=== PATIENT | female | born 1990 | race African-American/Black ===

== ENCOUNTER 2019-06-05 10:07 | Inpatient (IN) | payer BC, SELFPAY ==
[2019-06-05] VITALS (50 sets, daily range): BP systolic 114–188; BP diastolic 63–119; PULSE 64–87; TEMP 36.1–36.6; BMI 37.8
[2019-06-05 10:42] LABS: Basophils Percent Auto 0.8 % (0.2-1.2); Eosinophils Absolute Auto 0.1 K/mm3 (0-0.3); Eosinophils Percent Auto 1.2 % (0-4.4); Hematocrit 34.2 % (37.0-47.0); Immature Granulocyte Absolute 0.04 K/mm3 (0.00-0.031); Immature Granulocyte Percent A 0.8 % (0-0.5); Lymphocytes Absolute Auto 1.36 K/mm3 (0.9-3.2); Lymphocytes Percent Auto 27.1 % (18.3-44.2); Mean Corpuscular HGB Conc 32.2 g/dl (32-36); Mean Platelet Volume 10.4 fl (7.4-10.4); Monocytes Absolute Auto 0.4 K/mm3 (0.1-0.6); Monocytes Percent Auto 8.6 % (2.6-8.5); Neutrophils Absolute Auto 3.1 K/mm3 (1.3-6.7); Neutrophils Percent Auto 61.5 % (45.5-73.1); Platelet Count Result 261 k/mm3 (150-375); Red Blood Count 4.07 M/mm3 (4.2-5.4); Red Cell Distribution Width 14.3 % (11.5-14.5)
[2019-06-05 10:49] LABS: Add Urine Microscopic? YES; Appearance Urine Clear (Clear); Bacteria Urine Trace /hpf; Bilirubin Urine Negative (Negative); Blood Urine Negative (Negative); Color Urine Yellow (Yellow); Glucose Urine UA Negative (Negative); Ketones Urine Negative (Negative); Leukocyte Esterase Ur Negative LEU/UL (NEGATIVE); Nitrate Urine Negative (Negative); Protein Urine 3+ mg/dL (Negative); RBC Urine 0-2 /hpf (0-2); Specific Grav Ur 1.018 (1.001-1.035); Squamous Epithelial Cell Urine Many /hpf (Few); Urobilinogen Urine Negative mg/dL (<2.0); WBC Urine 0-3 /hpf (0-3)
[2019-06-05 10:53] LABS: Creatinine Urine 129.8 mg/dL
[2019-06-05 11:01] LABS: Alanine Aminotransferase 16 U/L (4-35); Albumin Level 3.6 g/dL (3.5-5.1); Alkaline Phosphatase 152 U/L (38-126); Aspartate Amino Transferase 29 U/L (14-36); Bilirubin,Total 0.1 mg/dL (0.2-1.3); Blood Urea Nitrogen 11 mg/dL (7-17); Calcium 9.2 mg/dL (8.4-10.2); Carbon Dioxide 21 mmol/L (22-30); Chloride 107 mmol/L (98-107); Estimated Glomerular Filt Rate > 60; Glucose 79 mg/dL (65-105); Potassium 4.2 mmol/L (3.4-5.0); Sodium 134 mmol/L (137-145)
[2019-06-05 11:10] LABS: Total Protein Urine Random > 600 mg/dL
[2019-06-05 11:16] LABS: Uric Acid 6.9 mg/dL (2.5-7.5)
[2019-06-05] MEDS: LABETALOL HCL INJ 100 MG/20 ML VIAL 20 MG IV PUSH (12:16)
[2019-06-05] MEDS: LACTATED RINGERS 1,000 ML 125 ML IV CONT (12:34)
[2019-06-05] MEDS: MAGNESIUM SULF 4 GM/WATER100ML 4 GM/100 ML BAG IVPB (12:35)
--- NOTE | 2019-06-05 12:52 | LDADM ---
This patient, Zack Rivera, was admitted to Labor/Delivery/Recovery 107 on 06/05/19 at 10:07. Plans for labor, pain management and were discussed with patient. Patient/family oriented to hospital policies and general routines including ID bracelet, bed and alarms, visiting hours, pain management, procedures, bathroom and other care routines, personal items, smoking policy, room service/diet and guest tray routines, infant security routines, and visiting hours. Patient/Family are encouraged to report perceived risks to care and to ask questions if they do not understand what they are told or what they should do. See OBIX for further documentation.
[2019-06-05] MEDS: MAGNESIUM SULF 2 GM/WATER 50ML 2 GM/50 ML BAG IVPB (13:05)
--- NOTE | 2019-06-05 13:14 | PC.NURSE ---
1120- called, read bp's and labs. Orders received to monitor bp's and call back with results.
--- NOTE | 2019-06-05 13:16 | PC.NURSE ---
1152-Dr. Botello called with increased bp's. Orders received to admit pt as inpatient for induction of labor with cervidil. Start hypertension protocol and start magensium sulfate 4gm bolus then run at 2gm/hr.
[2019-06-05] MEDS: LABETALOL HCL INJ 100 MG/20 ML VIAL 40 MG IV PUSH (13:44)
--- NOTE | 2019-06-05 13:48 | PC.NURSE ---
1153- called, read most recent bp's since Magnesium sulfate was started. Order received to keep pt NPO and give Labatelol 40mg IV push now.
[2019-06-05] MEDS: AMPICILLIN 2 GM/NS 100 ML 2 GM/100 ML BAG IVPB (14:18)
--- NOTE | 2019-06-05 16:13 | PC.NURSE ---
1613- called,informed pt has a headache and read most recent bp's. Order received for tylenol and he will be in soon to discuss induction with patient
[2019-06-05] MEDS: ACETAMINOPHEN 325 MG TABLET 650 MG PO (16:15)
--- NOTE | 2019-06-05 17:13 | PM.IMHP ---
H&P: HPI History of Present Illness Chief complaint: MIL Narrative: Zack Rivera is a 29 year old 1 female at 36 weeks gestation who presents for elevated blood pressures in the severe range. She denies any symptoms of severe preeclampsia. She denies any headache, blurry vision, epigastric pain. She denies any sudden onset worsening of her edema. She denies any chest pain or shortness of breath. She denies any nausea, vomiting, fever, chills. Review of Systems Constitutional: Constitutional: Reports no additional constitutional complaints, Denies fatigue, Denies headache(s), Denies lethargy and Denies weakness Eyes: Eyes: Reports no additional eye complaints, Denies blurry vision and Denies photophobia ENT: Reports as per HPI, Denies headache(s) and Denies neck pain Cardiovascular: Cardiovascular: Denies chest pain, Denies diaphoresis, Denies leg edema, Denies palpitations and Denies dyspnea Respiratory: Respiratory: Denies hemoptysis, Denies dyspnea and Denies wheezing Gastrointestinal: Gastrointestinal: Denies abdominal pain, Denies melena, Denies bloating, Denies hematochezia, Denies nausea and Denies vomiting Genitourinary: Genitourinary: Reports no additional female genitourinary complaints Musculoskeletal: Musculoskeletal: Denies joint swelling, Denies neck pain, Denies numbness and Denies stiffness Neurologic: Denies Abnormal speech present, Denies confusion, Denies headache(s), Denies numbness and Denies weakness Psychiatric: Psychiatric: Denies anxiety, Denies confusion, Denies depression, Denies homicidal ideation and Denies suicidal ideation Endocrine: Endocrine: Denies fatigue and Denies palpitations Allergic/Immunologic: Allergic/Immunologic: Denies wheezing [facility] Social History Social History Smoking status: Never smoker Second hand tobacco smoke exposure: No Alcohol intake: never Substance use: never Gender identity (if verbalized by the patient): Female Spiritual care concerns: No Meds Home Medications and Allergies Home Medications Medication Instructions Recorded Confirmed Type PNV cmb#95-ferrous fumarate-FA 1 tablet PO DAILY 06/05/19 06/05/19 History [] Allergies Allergy/AdvReac Type Severity Reaction Status Date / Time No Known Allergies Allergy Verified 06/05/19 11:00 Vital Signs Vital Signs - 24 hr 06/05/19 10:32 06/05/19 10:45 06/05/19 11:00 Temperature Pulse Rate 69 76 68 Blood Pressure 177/99 H 154/99 H 156/100 H Blood Pressure [Right Arm] 06/05/19 11:15 06/05/19 11:25 06/05/19 11:30 Temperature Pulse Rate 69 68 80 Blood Pressure 157/102 H 188/109 H Blood Pressure [Right Arm] 157/102 H 06/05/19 11:46 06/05/19 12:10 06/05/19 12:16 Temperature Pulse Rate 69 81 64 Blood Pressure 183/108 H 171/102 H 180/107 H Blood Pressure [Right Arm] 06/05/19 12:20 06/05/19 12:31 06/05/19 12:35 Temperature 97.7 F 97.8 F Pulse Rate 71 Blood Pressure 164/97 H Blood Pressure [Right Arm] 06/05/19 12:46 06/05/19 13:01 06/05/19 13:08 Temperature Pulse Rate 71 77 Blood Pressure 156/97 H 168/101 H Blood Pressure [Right Arm] 177/99 H 06/05/19 13:16 06/05/19 13:31 06/05/19 13:44 Temperature Pulse Rate 75 76 76 Blood Pressure 159/103 H 164/101 H Blood Pressure [Right Arm] 06/05/19 13:46 06/05/19 13:47 06/05/19 14:01 Temperature Pulse Rate 85 78 81 Blood Pressure 143/119 H 156/97 H 158/94 H Blood Pressure [Right Arm] 06/05/19 14:16 06/05/19 14:31 06/05/19 14:37 Temperature 97.3 F L Pulse Rate 73 74 Blood Pressure 153/92 H 159/99 H Blood Pressure [Right Arm] 06/05/19 14:46 06/05/19 15:01 06/05/19 15:16 Temperature Pulse Rate 73 70 75 Blood Pressure 142/80 H 139/75 138/80 Blood Pressure [Right Arm] 06/05/19 15:31 06/05/19 15:46 06/05/19 16:01 Temperature Pulse Rate 70 73 80 Blood Pressure 138/75 135/75 142/83 H Blood Pressure [Right
[2019-06-05] MEDS: LABETALOL HCL 100 MG TABLET 400 MG PO (17:24)
[2019-06-05] MEDS: AMPICILLIN 1 GM/NS 50 ML 1 GM/50 ML BAG IVPB ×2 (18:34→23:12)
[2019-06-05 19:00] LABS: Hematocrit 32.1 % (37.0-47.0); Hemoglobin 10.3 g/dL (12.0-15.0); Mean Corpuscular HGB Conc 32.1 g/dl (32-36); Mean Platelet Volume 10.6 fl (7.4-10.4); Platelet Count Result 245 k/mm3 (150-375); Red Blood Count 3.82 M/mm3 (4.2-5.4); Red Cell Distribution Width 14.5 % (11.5-14.5)
[2019-06-05] MEDS: DINOPROSTONE 10 MG VAG INSERT VAGINAL (19:01)
[2019-06-05 19:11] LABS: Uric Acid 7.2 mg/dL (2.5-7.5)
[2019-06-05 20:35] LABS: Alanine Aminotransferase 16 U/L (4-35); Albumin Level 3.3 g/dL (3.5-5.1); Alkaline Phosphatase 164 U/L (38-126); Aspartate Amino Transferase 29 U/L (14-36); Bilirubin,Total 0.1 mg/dL (0.2-1.3); Blood Urea Nitrogen 9 mg/dL (7-17); Calcium 8.2 mg/dL (8.4-10.2); Carbon Dioxide 19 mmol/L (22-30); Chloride 104 mmol/L (98-107); Estimated CRCL calculation 101 ml/min; Estimated Glomerular Filt Rate > 60; Glucose 99 mg/dL (65-105); Potassium 3.6 mmol/L (3.4-5.0); Sodium 131 mmol/L (137-145)
[2019-06-05] MEDS: MAGNESIUM SULF 20GM/WATER500ML 500 ML 50 MG IV CONT (23:31)
[2019-06-06] VITALS (124 sets, daily range): BP systolic 112–183; BP diastolic 57–157; PULSE 73–105; RESP 18; TEMP 36.2–37; O2SAT 93–100
[2019-06-06] MEDS: AMPICILLIN 1 GM/NS 50 ML 1 GM/50 ML BAG IVPB ×3 (02:41→10:33)
[2019-06-06] MEDS: LACTATED RINGERS 1,000 ML 125 ML IV CONT ×3 (02:42→23:18)
[2019-06-06 03:00] LABS: Basophils Percent Auto 0.4 % (0.2-1.2); Eosinophils Percent Auto 0.3 % (0-4.4); Hematocrit 34.3 % (37.0-47.0); Immature Granulocyte Absolute 0.05 K/mm3 (0.00-0.031); Immature Granulocyte Percent A 0.6 % (0-0.5); Lymphocytes Absolute Auto 1.44 K/mm3 (0.9-3.2); Lymphocytes Percent Auto 18.1 % (18.3-44.2); Mean Corpuscular HGB Conc 32.1 g/dl (32-36); Mean Corpuscular Hemoglobin 26.8 pg (26-34); Mean Corpuscular Volume 83.7 fl (80-100); Mean Platelet Volume 10.7 fl (7.4-10.4); Monocytes Absolute Auto 0.6 K/mm3 (0.1-0.6); Monocytes Percent Auto 7.3 % (2.6-8.5); Neutrophils Absolute Auto 5.8 K/mm3 (1.3-6.7); Neutrophils Percent Auto 73.3 % (45.5-73.1); Platelet Count Result 272 k/mm3 (150-375); Red Cell Distribution Width 14.6 % (11.5-14.5)
[2019-06-06 03:12] LABS: Alanine Aminotransferase 16 U/L (4-35); Albumin Level 3.7 g/dL (3.5-5.1); Alkaline Phosphatase 187 U/L (38-126); Aspartate Amino Transferase 29 U/L (14-36); Bilirubin,Total 0.1 mg/dL (0.2-1.3); Blood Urea Nitrogen 10 mg/dL (7-17); Calcium 8.1 mg/dL (8.4-10.2); Carbon Dioxide 22 mmol/L (22-30); Chloride 102 mmol/L (98-107); Estimated CRCL calculation 90 ml/min; Estimated Glomerular Filt Rate > 60; Glucose 89 mg/dL (65-105); Potassium 4.1 mmol/L (3.4-5.0); Sodium 132 mmol/L (137-145); Uric Acid 7.5 mg/dL (2.5-7.5)
[2019-06-06] MEDS: LABETALOL HCL 100 MG TABLET 400 MG PO (05:08)
--- NOTE | 2019-06-06 07:44 | PM.OBPNVD ---
OB - PN: Subj Subjective Date/time seen: 06/06/19 07:44 no complaints, no seals/bv/ep, no change in edema OB - PN: Obj Data Labs CBC & Chem 7: 06/06/19 02:51 06/06/19 02:51 Labs: Laboratory Results - last 24 hr 06/05/19 06/05/19 06/05/19 10:26 10:26 10:26 WBC 5.0 RBC 4.07 L Hgb 11.0 L Hct 34.2 L MCV 84.0 MCH 27.0 MCHC 32.2 RDW 14.3 Plt Count 261 MPV 10.4 Immature Gran % (Auto) 0.8 H Neut % (Auto) 61.5 Lymph % (Auto) 27.1 [place] % (Auto) 8.6 H Eos % (Auto) 1.2 Baso % (Auto) 0.8 Lymph # (Auto) 1.36 [place] # (Auto) 0.4 Eos # (Auto) 0.1 Baso # (Auto) 0.0 Abs Immat Gran (auto) 0.04 H Absolute Neuts (auto) 3.1 Absolute Nucleated RBC 0.0 Nucleated RBC % 0.0 Sodium Potassium Chloride Carbon Dioxide BUN Creatinine Estim Creat Clear Calc Estimated GFR Glucose Uric Acid Calcium Total Bilirubin AST ALT Alkaline Phosphatase Total Protein Albumin Urine Color Yellow Urine Appearance Clear Urine pH 7.0 Ur Specific [place] 1.018 Urine Protein 3+ H Urine Glucose (UA) Negative Urine Ketones Negative Ur Blood (Man) Negative Urine Nitrate Negative Urine Bilirubin Negative Urine Urobilinogen Negative Ur Leukocyte Esterase Negative Urine RBC 0-2 Urine WBC 0-3 Ur Squamous Epith Cells Many H Urine Bacteria Trace Hyaline Casts 1-2 U Random Total Protein > 600 Urine Creatinine 129.8 Blood Type Antibody Screen 06/05/19 06/05/19 06/05/19 10:26 12:38 18:37 WBC 7.0 RBC 3.82 L Hgb 10.3 L Hct 32.1 L MCV 84.0 MCH 27.0 MCHC 32.1 RDW 14.5 Plt Count 245 MPV 10.6 H Immature Gran % (Auto) Neut % (Auto) Lymph % (Auto) [place] % (Auto) Eos % (Auto) Baso % (Auto) Lymph # (Auto) [place] # (Auto) Eos # (Auto) Baso # (Auto) Abs Immat Gran (auto) Absolute Neuts (auto) Absolute Nucleated RBC Nucleated RBC % Sodium 134 L Potassium 4.2 Chloride 107 Carbon Dioxide 21 L BUN 11 Creatinine 0.90 Estim Creat Clear Calc Not Reportable Estimated GFR > 60 Glucose 79 Uric Acid 6.9 Calcium 9.2 Total Bilirubin 0.1 L AST 29 ALT 16 Alkaline Phosphatase 152 H Total Protein 7.0 Albumin 3.6 Urine Color Urine Appearance Urine pH Ur Specific [place] Urine Protein Urine Glucose (UA) Urine Ketones Ur Blood (Man) Urine Nitrate Urine Bilirubin Urine Urobilinogen Ur Leukocyte Esterase Urine RBC Urine WBC Ur Squamous Epith Cells Urine Bacteria Hyaline Casts U Random Total Protein Urine Creatinine Blood Type B Positive Antibody Screen Negative 06/05/19 06/05/19 06/06/19 18:37 18:37 02:51 WBC 8.0 RBC 4.10 L Hgb 11.0 L Hct 34.3 L MCV 83.7 MCH 26.8 MCHC 32.1 RDW 14.6 H Plt Count 272 MPV 10.7 H Immature Gran % (Auto) 0.6 H Neut % (Auto) 73.3 H Lymph % (Auto) 18.1 L [place] % (Auto) 7.3 Eos % (Auto) 0.3 Baso % (Auto) 0.4 Lymph # (Auto) 1.44 [place] # (Auto) 0.6 Eos # (Auto) 0.0 Baso # (Auto) 0.0 Abs Immat Gran (auto) 0.05 H Absolute Neuts (auto) 5.8 Absolute Nucleated RBC 0.0 Nucleated RBC % 0.0 Sodium 131 L Potassium 3.6 Chloride 104 Carbon Dioxide 19 L BUN 9 Creatinine 0.80 Estim Creat Clear Calc 101 Estimated GFR > 60 Glucose 99 Uric Acid 7.2 Calcium 8.2 L Total Bilirubin 0.1 L AST 29 ALT 16 Alkaline Phosphatase 164 H Total Protein 7.0 Albumin 3.3 L Urine Color Urine Appearance Urine pH Ur Specific [place] Urine Protein Urine Glucose (UA) Urine Ketones Ur Blood (Man) Urine Nitrate Urine Bilirubin Urine Urobilinogen Ur Leukocyte Esterase Urine RBC Urine WB
[2019-06-06] MEDS: ONDANSETRON INJ 4 MG/2 ML VIAL IV PUSH (08:08)
[2019-06-06] MEDS: MAGNESIUM SULF 20GM/WATER500ML 500 ML 50 MG IV CONT ×2 (08:53→18:50)
[2019-06-06] MEDS: OXYTOCIN 30 UNITS/NS 500 ML 30 UNITS/500 ML BAG IV CONT (08:54)
--- NOTE | 2019-06-06 09:13 | WPDANESEPP ---
Anes - Eval Pre Procedure Procedure: Labor Pain Date/Time: 06/06/19 09:13 Surgeon: Ayan Preop Diagnosis: Labor Pain Pre Op Diagnosis: MIL Patient Data Age: 29 Gender: F Height: 5 ft 3 in Weight: 96.82 kg Last Vital Signs Temp 36.3 C L 06/06/19 08:47 Pulse 79 06/06/19 09:13 BP 119/70 06/06/19 09:13 Pulse Ox 98 06/06/19 09:09 Allergies Allergy/AdvReac Type Severity Reaction Status Date / Time No Known Allergies Allergy Verified 06/05/19 11:00 Home Medications Medication Instructions Recorded Confirmed Type PNV cmb#95-ferrous fumarate-FA 1 tablet PO DAILY 06/05/19 06/05/19 History [] Laboratory Tests 06/05/19 06/05/19 06/05/19 10:26 10:26 10:26 WBC 5.0 K/mm3 K/mm3 (4.5-10.0) RBC 4.07 M/mm3 L M/mm3 (4.2-5.4) Hgb 11.0 g/dL L g/dL (12.0-15.0) Hct 34.2 % L % (37.0-47.0) MCV 84.0 fl fl (80-100) MCH 27.0 pg pg (26-34) MCHC 32.2 g/dl g/dl (32-36) RDW 14.3 % % (11.5-14.5) Plt Count 261 k/mm3 k/mm3 (150-375) MPV 10.4 fl fl (7.4-10.4) Immature Gran % (Auto) 0.8 % H % (0-0.5) Neut % (Auto) 61.5 % % (45.5-73.1) Lymph % (Auto) 27.1 % % (18.3-44.2) [place] % (Auto) 8.6 % H % (2.6-8.5) Eos % (Auto) 1.2 % % (0-4.4) Baso % (Auto) 0.8 % % (0.2-1.2) Lymph # (Auto) 1.36 K/mm3 K/mm3 (0.9-3.2) [place] # (Auto) 0.4 K/mm3 K/mm3 (0.1-0.6) Eos # (Auto) 0.1 K/mm3 K/mm3 (0-0.3) Baso # (Auto) 0.0 K/mm3 K/mm3 (0.0-0.1) Abs Immat Gran (auto) 0.04 K/mm3 H K/mm3 (0.00-0.031) Absolute Neuts (auto) 3.1 K/mm3 K/mm3 (1.3-6.7) Absolute Nucleated RBC 0.0 K/mm3 K/mm3 (0.0-0.012) Nucleated RBC % 0.0 % % (0.0-0.2) Sodium Potassium Chloride Carbon Dioxide BUN Creatinine Estim Creat Clear Calc Estimated GFR Glucose Uric Acid Calcium Total Bilirubin AST ALT Alkaline Phosphatase Total Protein Albumin Urine Color Yellow (Yellow) Urine Appearance Clear (Clear) Urine pH 7.0 (5.0-9.0) Ur Specific [place] 1.018 (1.001-1.035) Urine Protein 3+ mg/dL H mg/dL (Negative) Urine Glucose (UA) Negative mg/dL mg/dL (Negative) Urine Ketones Negative mg/dL mg/dL (Negative) Ur Blood (Man) Negative (Negative) Urine Nitrate Negative (Negative) Urine Bilirubin Negative (Negative) Urine Urobilinogen Negative mg/dL mg/dL (<2.0) Ur Leukocyte Esterase Negative SAM/UL SAM/UL (NEGATIVE) Urine RBC 0-2 /hpf /hpf (0-2) Urine WBC 0-3 /hpf /hpf (0-3) Ur Squamous Epith Cells Many /hpf H /hpf (Few) Urine Bacteria Trace /hpf /hpf Hyaline Casts 1-2 /lpf /lpf (None) U Random Total Protein > 600 mg/dL mg/dL Urine Creatinine 129.8 mg/dL mg/dL RPR Blood Type Antibody Screen 06/05/19 06/05/19 06/05/19 10:26 12:38 12:38 WBC RBC Hgb Hct MCV MCH MCHC RDW Plt Count MPV Immature Gran % (Auto) Neut % (Auto) Lymph % (Auto) [place] % (Auto) Eos % (Auto) Baso % (Auto) Lymph # (Auto) [place] # (Auto) Eos # (Auto) Baso # (Auto) Abs Immat Gran (auto) Absolute Neuts (auto) Absolute Nucleated RBC Nucleated RBC % Sodium 134 mmol/L L mm
[2019-06-06 10:06] LABS: Rapid Plasma Reagin Non-Reactive (NonReactive)
[2019-06-06 13:20] LABS: Hematocrit 33.5 % (37.0-47.0); Hemoglobin 10.8 g/dL (12.0-15.0); Mean Corpuscular HGB Conc 32.2 g/dl (32-36); Mean Corpuscular Hemoglobin 27.1 pg (26-34); Mean Platelet Volume 10.7 fl (7.4-10.4); Platelet Count Result 264 k/mm3 (150-375); Red Blood Count 3.99 M/mm3 (4.2-5.4); Red Cell Distribution Width 14.7 % (11.5-14.5); White Blood Count 9.2 K/mm3 (4.5-10.0)
[2019-06-06 13:33] LABS: Alanine Aminotransferase 19 U/L (4-35); Albumin Level 3.7 g/dL (3.5-5.1); Alkaline Phosphatase 188 U/L (38-126); Aspartate Amino Transferase 29 U/L (14-36); Bilirubin,Total 0.1 mg/dL (0.2-1.3); Blood Urea Nitrogen 11 mg/dL (7-17); Calcium 7.7 mg/dL (8.4-10.2); Carbon Dioxide 21 mmol/L (22-30); Chloride 102 mmol/L (98-107); Estimated CRCL calculation 90 ml/min; Estimated Glomerular Filt Rate > 60; Glucose 103 mg/dL (65-105); Potassium 4.2 mmol/L (3.4-5.0); Sodium 130 mmol/L (137-145); Uric Acid 7.7 mg/dL (2.5-7.5)
--- NOTE | 2019-06-06 14:23 | PM.OBPRVD ---
OB - Delivery Note Procedure Delivery date: 06/06/19 Procedure: events: Pre-Eclampsia Intrapartal events: Severe Preeclampsia Induction method: AROM, per misoprostol protocol and per pitocin protocol Delivery monitor: external FHT and internal uterine Route of delivery: Laceration description: Perineal - 1st Degree Delivery repair: vicryl Specimen: Yes Estimated blood loss (mL): 675 Anesthesia type: Epidural Disposition: floor Complications: bleeding /hemorrhage, 675 blood loss [place] Baby Date of : 06/06/19 Time of : 13:38 Weeks of gestation at delivery: 36 Infant gender: Male Weight (pounds): 5 Weight (ounces): 4 presentation: vertex position: Left Occiput Transverse Placenta delivery description: Spontaneous cord vessel description: 3 Vessels score one minute: 9 score ten minutes: 9
[2019-06-06] MEDS: OXYTOCIN 30 UNITS/NS 500 ML 30 UNITS/500 ML BAG 125 UNITS IV CONT (14:26)
--- NOTE | 2019-06-06 14:56 | PC.NURSE ---
1445- called to clarify labetalol and magensium sulfate orders. Order received to continue magnesium sulfate at 2g/hr for 24hr after delivery and decrease labetalol to 200mg po q12hr.
[2019-06-06] MEDS: BENZOCAINE 20% AER SPR (*SP) 56 GM CAN 1 SPRAY TOPICAL (15:52)
[2019-06-06] MEDS: WITCH HAZEL 40 PADS 1 PAD TOPICAL (15:52)
[2019-06-06] MEDS: ACETAMINOPHEN 325 MG TABLET 650 MG PO (17:46)
[2019-06-06] MEDS: LABETALOL HCL 100 MG TABLET 200 MG PO (17:46)
[2019-06-07] VITALS (7 sets, daily range): BP systolic 125–156; BP diastolic 81–98; PULSE 69–86; RESP 16–18; TEMP 36.4–36.9; O2SAT 100
[2019-06-07] MEDS: MAGNESIUM SULF 20GM/WATER500ML 500 ML 50 MG IV CONT (04:33)
[2019-06-07] MEDS: LABETALOL HCL 100 MG TABLET 200 MG PO ×2 (04:35→16:30)
[2019-06-07] MEDS: ACETAMINOPHEN 325 MG TABLET 650 MG PO (04:35)
[2019-06-07 05:10] LABS: Hematocrit 27.6 % (37.0-47.0); Hemoglobin 8.7 g/dL (12.0-15.0)
--- NOTE | 2019-06-07 07:27 | P.PNOB_ITS ---
OB - PN: Subj Subjective Date/time seen: 06/07/19 07:27 OB - PN: Obj Data Labs CBC & Chem 7: 06/07/19 04:42 06/06/19 12:58 Labs: Laboratory Results - last 24 hr 06/05/19 06/06/19 06/06/19 12:38 12:58 12:58 WBC 9.2 RBC 3.99 L Hgb 10.8 L Hct 33.5 L MCV 84.0 MCH 27.1 MCHC 32.2 RDW 14.7 H Plt Count 264 MPV 10.7 H Sodium 130 L Potassium 4.2 Chloride 102 Carbon Dioxide 21 L BUN 11 Creatinine 0.90 Estim Creat Clear Calc 90 Estimated GFR > 60 Glucose 103 Uric Acid 7.7 H Calcium 7.7 L Total Bilirubin 0.1 L AST 29 ALT 19 Alkaline Phosphatase 188 H Total Protein 7.0 Albumin 3.7 RPR Non-reactive 06/07/19 04:42 WBC RBC Hgb 8.7 L Hct 27.6 L MCV MCH MCHC RDW Plt Count MPV Sodium Potassium Chloride Carbon Dioxide BUN Creatinine Estim Creat Clear Calc Estimated GFR Glucose Uric Acid Calcium Total Bilirubin AST ALT Alkaline Phosphatase Total Protein Albumin RPR OB - PN A/P Time Spent With Patient Time: Total time spent is greater than 50% in coordination of care (as documente d) at patient's floor/unit and/or counseling patient: Review of Systems Review of Systems: All systems reviewed & are unremarkable except as noted in HPI and below Constitutional: Constitutional: Reports as per HPI Exam Const: General: comfortable Resp: Effort & Inspection: normal respiratory effort Cardio: Rate: regular rate Psych: Appearance: grossly normal Affect: normal affect Attitude: cooperative Judgement: Good judgement present (Psych)
[2019-06-07] MEDS: DOCUSATE SODIUM 100 MG CAPSULE PO ×2 (08:32→16:29)
[2019-06-07] MEDS: POLYSACCHARIDE IRON COMPLEX 150 MG CAPSULE PO ×2 (08:32→16:30)
[2019-06-07] MEDS: IBUPROFEN 600 MG TABLET PO ×2 (08:32→16:30)
[2019-06-07] MEDS: MULTIVIT/MIN/PREN/FOL AC/IRON TABLET 1 TAB PO (08:32)
--- NOTE | 2019-06-07 12:05 | PC.NURSE ---
Consulted with patient, mother reports infant is eagerly waking to feed. Mother has some tenderness with feedings. Reviewed infant feeding cues, frequencies, duration of feedings, feeding elimination flow sheet, and signs of adequate intake. Demonstrated stimulation techniques to wake for feeding. Assisted with to breast. Reviewed positioning/alignment in cross cradle, holding breast U hold and guided asymmetrical latch on. Discussed rational for each. Mother reports she has been using the cradle and allowing to self latch with a shallow latch. Infant was able to latch correctly. nursed eagerly, with steady draws and frequent swallowing noted. Reviewed signs of a correct latch, effective nursing and suck swallow ratio. was able to maintain latch without discomfort to mother. Nipple care reviewed. Discussed and the early infant, with possible sleepiness at feedings, inconsistent feedings and need to wake and keep stimulated while feeding for increased intake. Instructed mother to call out for RN assistance if she is unable to latch for feeding or she has discomfort with nursing. Instructed feeding should be initiated three hours from start of last feeding or if feeding cues are noted before. Mother voiced understanding of information shared.
[2019-06-07] MEDS: LACTATED RINGERS 1,000 ML 125 ML IV CONT (12:09)
--- NOTE | 2019-06-07 13:58 | WPDANLDPN2 ---
Anes-Prog Note L&D Date/Time: 06/07/19 13:58 Comfortable throughout: labor and delivery Neuraxial method: epidural Epidural/Spinal procedure site: clean & non-tender Neuro status: Neuro function grossly intact. Cardiovascular status: normal Respiratory status: normal Airway patency: baseline Mental status: baseline Post-Op hydration status: normal Vital Signs: Last Vital Signs Temp 36.4 C L 06/07/19 11:30 Pulse 72 06/07/19 11:30 Resp 18 06/07/19 11:30 BP 125/85 06/07/19 11:30 Pulse Ox 100 06/07/19 04:30 I/O: Intake & Output 06/06/19 06/07/19 06/07/19 23:59 07:59 15:59 Intake Total 2540 1500 1500 Output Total 1100 1000 Balance 1440 1500 500 Post-procedural complaints: none Patient feedback: Patient satisfied with anesthetic care.
[2019-06-08] VITALS (9 sets, daily range): BP systolic 141–170; BP diastolic 90–99; PULSE 69–80; RESP 14–18; TEMP 36.9–37.3; O2SAT 100
[2019-06-08] MEDS: LABETALOL HCL 100 MG TABLET 200 MG PO ×3 (05:16→21:39)
--- NOTE | 2019-06-08 07:52 | PM.OBPNVD ---
OB - PN: Subj Subjective Date/time seen: 06/08/19 07:52 Patient comments: no complaints, pain well controlled and tolerating diet Narrative: NO SMITH/BV/EP OB - PN: Obj Data Labs CBC & Chem 7: 06/07/19 04:42 06/06/19 12:58 OB - PN A/P Plan day: 2 Plan: routine care Comments: To continue obs., some elevated bp's, to increase labetalol Time Spent With Patient Time: Total time spent is greater than 50% in coordination of care (as documented) at patient's floor/unit and/or counseling patient: Exam Const: General: comfortable and no acute distress Resp: Effort & Inspection: normal respiratory effort Auscultation: no rales, no rhonchi and no wheezes Cardio: Rate: regular rate Heart sounds: no click, no murmurs and no rubs GI: GI Palp: Yes Soft to palpation and No Tenderness to palpation present (GI) Auscultation: normal bowel sounds Extrem: General: normal to inspection, no pedal edema and no calf tenderness
[2019-06-08] MEDS: POLYSACCHARIDE IRON COMPLEX 150 MG CAPSULE PO ×2 (09:01→17:20)
[2019-06-08] MEDS: DOCUSATE SODIUM 100 MG CAPSULE PO ×2 (09:01→17:20)
[2019-06-08] MEDS: MULTIVIT/MIN/PREN/FOL AC/IRON TABLET 1 TAB PO (09:01)
[2019-06-08] MEDS: ACETAMINOPHEN 325 MG TABLET 650 MG PO ×2 (11:43→17:24)
[2019-06-08] MEDS: TETANUS,DIPHTHERIA,AC PERTUSSIS ADULT (0.5 ML) BOOSTRIX IM (11:53)
--- NOTE | 2019-06-08 15:15 | PC.NURSE ---
Observed mother is able to independently latch with appropriate positioning/alignment. Mother put to breast while reviewing discharge. Assisted with adjusting latch more deeply while feeding. Mother's milk is transitioning in. She denies any nipple discomfort, is feeding as required and waking infant to feed if needed. Infant has had at least 8 effective feedings in the past 24 hours, and is currently meeting outcomes for weight, output, jaundice and feeding frequencies. Mother states she feels confident to continue effective at home. Reviewed transition to breast milk, signs of adequate intake, and engorgement/relief. Instructed to call ICP if intake/output less than required. Reviewed regular medications mother is taking. Information provided per Svetlana. Reviewed community resources on the [facility] website and in the Mom/Baby guide. Information on outpatient services provided. Mother has no further questions at this time. Mother wishes for discharge this evening.
[2019-06-08 22:07] LABS: Mean Platelet Volume 10.5 fl (7.4-10.4); Platelet Count Result 235 k/mm3 (150-375)
[2019-06-08 22:18] LABS: Alanine Aminotransferase 25 U/L (4-35); Albumin Level 3.4 g/dL (3.5-5.1); Alkaline Phosphatase 114 U/L (38-126); Aspartate Amino Transferase 50 U/L (14-36); Bilirubin,Total < 0.1 mg/dL (0.2-1.3); Blood Urea Nitrogen 11 mg/dL (7-17); Calcium 8.6 mg/dL (8.4-10.2); Carbon Dioxide 26 mmol/L (22-30); Chloride 105 mmol/L (98-107); Estimated CRCL calculation 82 ml/min; Estimated Glomerular Filt Rate > 60; Glucose 88 mg/dL (65-105); Potassium 3.9 mmol/L (3.4-5.0); Sodium 136 mmol/L (137-145); Uric Acid 7.7 mg/dL (2.5-7.5)
[2019-06-09] VITALS (10 sets, daily range): BP systolic 118–168; BP diastolic 81–109; PULSE 79–89; RESP 14–18; TEMP 36.7–37.4; O2SAT 97–100
[2019-06-09] MEDS: ACETAMINOPHEN 325 MG TABLET 650 MG PO ×2 (00:50→08:56)
[2019-06-09] MEDS: LABETALOL HCL 100 MG TABLET 400 MG PO ×2 (04:56→16:07)
--- NOTE | 2019-06-09 08:07 | P.PNOB_ITS ---
OB - PN: Subj Subjective Date/time seen: 06/09/19 08:07 No SMITH/BV/EP. Denies worsening edema. Bleeding slowing, OB - PN: Obj Data Labs CBC & Chem 7: 06/08/19 21:53 06/08/19 21:53 Labs: Laboratory Results - last 24 hr 06/08/19 06/08/19 21:53 21:53 Plt Count 235 MPV 10.5 H Sodium 136 L Potassium 3.9 Chloride 105 Carbon Dioxide 26 BUN 11 Creatinine 1.00 Estim Creat Clear Calc 82 Estimated GFR > 60 Glucose 88 Uric Acid 7.7 H Calcium 8.6 Total Bilirubin < 0.1 L AST 50 H ALT 25 Alkaline Phosphatase 114 Total Protein 7.0 Albumin 3.4 L OB - PN A/P Assessment and Plan (1) Pre-eclampsia, severe, condition: Code(s): O14.15 - Severe pre-eclampsia, complicating the puerperium Status: Acute Assessment and Plan: To restart Mg. to cont. Obs. AST up slightly. No diuresis yet Time Spent With Patient Time: Total time spent is greater than 50% in coordination of care (as documented) at patient's floor/unit and/or counseling patient: Exam Const: General: comfortable, no acute distress and alert Resp: Effort & Inspection: normal respiratory effort Auscultation: no crac kles, no rales and no rhonchi Cardio: Rate: regular rate Heart sounds: no click, no murmurs and no rubs GI: Inspection: non-distended GI Palp: No Tenderness to palpation present (GI) Auscultation: normal bowel sounds Other: Incision - CDI Extrem: General: normal to inspection, no pedal edema and no calf tenderness
[2019-06-09] MEDS: MULTIVIT/MIN/PREN/FOL AC/IRON TABLET 1 TAB PO (08:56)
[2019-06-09] MEDS: POLYSACCHARIDE IRON COMPLEX 150 MG CAPSULE PO ×2 (08:56→16:07)
[2019-06-09] MEDS: LACTATED RINGERS 1,000 ML 75 ML IV CONT ×2 (09:28→22:30)
[2019-06-09] MEDS: MAGNESIUM SULF 20GM/WATER500ML 500 ML 50 MG IV CONT ×2 (09:29→19:27)
--- NOTE | 2019-06-09 13:45 | PC.NURSE ---
Observed mother able to independently latch infant with appropriate positioning/alignment. She denies any nipple discomfort, is feeding as required and waking to feed if needed. Demonstrated stimulation techniques to keep awake and effectively feeding. Reviewed positioning/alignment in cross cradle, holding breast in U hold and guided asymmetrical latch on. Infant nursed eagerly, with steady draws and frequent swallowing noted. Reviewed signs of a correct latch, effective nursing and suck swallow ratio. was able to maintain latch without discomfort to mother. Nipple care reviewed.
--- NOTE | 2019-06-09 14:00 | PC.NURSE ---
Mother requested assist with her breastpump from home. Mother is initiating pumping due to jaundice and at 9% weight loss. Instructions given on breast pump care and usage, pumping schedule, nipple care, and collection and storage of breast milk. Encouraged [id number], breast massage and manual expression to stimulate supply. Assessed patient for correct flange size, placement and draw. Patient verbalizes and demonstrates understanding of instructions.
[2019-06-09] MEDS: NIFEdipine 30 MG TAB.ER.24 PO (15:02)
[2019-06-09] MEDS: LABETALOL HCL INJ 100 MG/20 ML VIAL 20 MG IV PUSH (15:02)
[2019-06-10] VITALS (9 sets, daily range): BP systolic 108–139; BP diastolic 71–92; PULSE 50–85; RESP 14–20; TEMP 36.4–36.8; O2SAT 99–100
[2019-06-10] MEDS: MAGNESIUM SULF 20GM/WATER500ML 500 ML 50 MG IV CONT (05:40)
[2019-06-10] MEDS: LABETALOL HCL 100 MG TABLET 400 MG PO ×2 (05:41→17:00)
--- NOTE | 2019-06-10 09:00 | PC.NURSE ---
Stool softener and Iron held due to pt. nausea from MgSo4. Will resume at next dose if pt. condition back to normal.
--- NOTE | 2019-06-10 09:45 | PM.OBPNVD ---
OB - PN: Subj Subjective Date/time seen: 06/10/19 09:45 Patient comments: no complaints, pain well controlled and other (Lochia similar to menses) [place] baby status: doing well Narrative: Magnesium just discontinued. No complaints except mild cramping when nursing. Lochia less than menses. No SMITH/visual changes. No SOB, chest pain. OB - PN: Obj Data Labs CBC & Chem 7: 06/08/19 21:53 06/08/19 21:53 OB - PN A/P Assessment and Plan (1) Pre-eclampsia, severe, condition: Code(s): O14.15 - Severe pre-eclampsia, complicating the puerperium Status: Acute Assessment and Plan: Continue procardia and labetalol. Magnesium just discontinued. Observe at least one more night to see trend in BP and adjust medications accordingly. She agrees Plan day: 4 (s/p vaginal delivery, doing well) Plan: other Time Spent With Patient Time: Total time spent is greater than 50% in coordination of care (as documented) at patient's floor/unit and/or counseling patient: Time with patient: less than 15 minutes Exam Const: General: no acute distress GI: Inspection: other (Fundus firm and nontender below umbilicus) GI Palp: Yes Soft to palpation and No Tenderness to palpation present (GI) Extrem: General: no edema
[2019-06-10] MEDS: IBUPROFEN 600 MG TABLET PO ×2 (12:11→19:31)
[2019-06-10] MEDS: MULTIVIT/MIN/PREN/FOL AC/IRON TABLET 1 TAB PO (15:19)
[2019-06-10] MEDS: DOCUSATE SODIUM 100 MG CAPSULE PO (15:19)
[2019-06-10] MEDS: POLYSACCHARIDE IRON COMPLEX 150 MG CAPSULE PO (15:19)
[2019-06-10] MEDS: NIFEdipine 30 MG TAB.ER.24 PO (15:20)
--- NOTE | 2019-06-10 18:50 | PC.NURSE ---
Called to room. Pt. states she has a large area under right armpit. States that she had surgery about 3-4 years ago and they either drained or removed cyst from this area. Large swollen area noted approx. 7cm. in size that is palpable, hot and tender to touch. Ice pack applied. Dr. Lucas notified and status report given. Orders received to begin antibiotics.
[2019-06-10] MEDS: DICLOXACILLIN SODIUM 250 MG CAPSULE 500 MG PO (19:27)
[2019-06-10] MEDS: ACETAMINOPHEN 325 MG TABLET 650 MG PO (19:32)
[2019-06-11] MEDS: IBUPROFEN 600 MG TABLET PO (01:15)
[2019-06-11] MEDS: DICLOXACILLIN SODIUM 250 MG CAPSULE 500 MG PO ×3 (01:16→12:11)
[2019-06-11 05:05] VITALS: BP 135/84; PULSE 80
[2019-06-11 05:08] VITALS: PULSE 80
[2019-06-11] MEDS: LABETALOL HCL 100 MG TABLET 400 MG PO (05:08)
--- NOTE | 2019-06-11 08:30 | PM.OBPNVD ---
OB - PN: Subj Subjective Date/time seen: 06/11/19 08:30 Interval history: She was started on antibiotics yesterday for probable mastitis. Swelling and pain in right axilla has improved. She is nursing well. No fever, N/V Patient comments: no complaints, pain well controlled and other (Lochia similar to menses) baby status: doing well Narrative: No SMITH/visual changes. OB - PN: Obj Data Labs CBC & Chem 7: 06/08/19 21:53 06/08/19 21:53 OB - PN A/P Assessment and Plan (1) Mastitis during puerperium: Code(s): O91.22 - Nonpurulent mastitis associated with the puerperium Status: Acute Assessment and Plan: Continue dicloxacillin. Mastitis is in axilla in what is possibly accessory breast tissue. She reports it has been present for years, and she had benign imaging during this . Mastitis symptoms just started yesterday and have improved with antibiotics (2) Pre-eclampsia, severe, condition: Code(s): O14.15 - Severe pre-eclampsia, complicating the puerperium Status: Acute Assessment and Plan: BP normal to mildly elevated and asymptomatic on current regimen so continue procardia and labetalol and follow up in the office within 1 week Plan day: 5 (s/p vaginal delivery, doing well) Plan: routine care, discharge home and other (Follow up in office within 1 week) Time Spent With Patient Time: Total time spent is greater than 50% in coordination of care (as documented) at patient's floor/unit and/or counseling patient: Exam Const: General: no acute distress Chest: Breast/axilla inspection: inspection of breasts abnormal Breast/axilla palpation: palpation of the breasts abnormal Other: Approximately 9 X 5 cm mass in right axilla, firm and mildly tender. No obvious erythema (dark skin tone). No drainage. No fluctuance GI: Inspection: other (Fundus firm and nontender below umbilicus) GI Palp: Yes Soft to palpation and No Tenderness to palpation present (GI) Extrem: General: no edema
[2019-06-11] MEDS: POLYSACCHARIDE IRON COMPLEX 150 MG CAPSULE PO (08:56)
[2019-06-11] MEDS: DOCUSATE SODIUM 100 MG CAPSULE PO (08:56)
[2019-06-11] MEDS: MULTIVIT/MIN/PREN/FOL AC/IRON TABLET 1 TAB PO (08:56)
--- NOTE | 2019-07-01 10:05 | PM.OBDSVD ---
DS: Diagnosis Admitting Diagnosis Admitting Diagnosis: Encounter for supervision of normal , unspecified, third trimester Discharge Diagnosis (1) 36 weeks gestation of : Code(s): Z3A.36 - 36 weeks gestation of Status: Acute (2) Pre-eclampsia, severe, condition: Code(s): O14.15 - Severe pre-eclampsia, complicating the puerperium Status: Acute (3) Preeclampsia, severe: Code(s): O14.10 - Severe pre-eclampsia, unspecified trimester Status: Acute OB - DS: Summary OB Procedures : PIH Mgmt OB Procedures Intrapartum: Spontaneous Vag Delivery OB Procedures: : None Peripartum Data Laceration description: Vaginal - 1st Degree complications: other (preeclampsia) Status at Discharge Functional status at discharge: independent ambulation Time Spent with Patient Time attestation: Total time spent providing and/or coordinating discharge services: Time spent: Less than 30 minutes DS: Data Data Completed and Pending Completed studies during hospitalization: Pending at discharge 06/06/19 13:50 Surgical [PTH] Routine Discharge Plan Discharge Consulting providers: Merna Cherry Discharging Clinician: Lianet Lucas Anticipated Discharge Date/Time: 06/11/19 12:38 Patient Disposition: Home, Self-Care Activity: may shower, no straining, may drive after 2 weeks, as tolerated and pelvic rest Diet: regular Discharge Instructions: Education: Mom and Baby Guide Given to: Mother Follow-Up: Call your delivering provider's office for an appointment to be seen in: 1 Week Mom [facility] for the follow-up appointment. Appointment Date/Time: June 14, 2019 at 10:00 am What to expect at your follow-up visit: Blood Pressure Check Physical Assessment Call [phone] if you are unable to keep your appointment time. BREAST CARE: 1. Wear a snug supportive bra. 2. For engorgement discomfort: Breast Feeding: A. Apply warm moist washcloths B. Express milk as needed to relieve engorgement C. Wear loose clothing Bottle Feeding: A. May apply ice packs 3. For sore nipples: A. Identify correct latch-on B. Apply warm moist washcloths before and after nursing C. Air dry nipples after nursing D. May apply Lansinoh cream to nipples EPISIOTOMY/PERINEAL CARE: 1. Until bleeding stops, use your robert bottle after urinating 2. Change your pad frequently throughout the day 3. You may take sitz baths several times a day (fill your bathtub with warm water and soak for 20 minutes.) Do NOT bathe in the water 4. No tub baths until seen by your physician - You may shower ACTIVITY: 1. Rest as much as possible. 2. Do not exercise or lift anything heavier than your baby (such as laundry or other children.) 3. Avoid stairs or driving as much as possible. 4. Do not put anything into the vagina. No douching, tampons, or sexual activity until seen by physician. NOTIFY PHYSICIAN IF YOU HAVE ANY QUESTIONS OR IF ANY OF THE FOLLOWING SYMPTOMS OCCUR: 1. If your perineum becomes red, swollen, or more painful than what you have experienced in the hospital. 2. If your vaginal bleeding becomes foul smelling. 3. If your vaginal bleeding becomes more heavy than a period or if your bleeding changes from pink to bright red. However, you may pass an occasional walnut-sized clot once or twice for the first week . 4. If you experience a sharp, shooting pain in you calves. 5. If you discover a hard, reddened area on your breast or if you experience flu-like symptoms. 6. Temperature is 100.4 or higher DIET: 1. Eat regular, well-balanced meals. 2. Drink plenty of fluids daily. If , drink to thirst. Patient Instructions: Antibiotic Form Stand Alone Forms: General Discharge Informatio
== END 2019-06-11 13:28 | disposition home or self-care (01) | DRG 807 ==
LOC: ANHOBPP 12:10 → ANHOBOP 12:18 → ANHLDR 12:19 → ANHOB2 06-06 17:06
PROVIDERS: Admitting Provider Obstetrics & Gynecology; Family Provider Obstetrics & Gynecology; Visit Provider Obstetrics & Gynecology
DX: O14.14 Severe pre-eclampsia complicating childbirth (principal); Z37.0 Single live birth; O70.0 First degree perineal laceration during delivery; O14.15 Severe pre-eclampsia, complicating the puerperium; Z3A.36 36 weeks gestation of pregnancy; O71.82 Other specified trauma to perineum and vulva; O99.214 Obesity complicating childbirth; E66.9 Obesity, unspecified; O76 Abnormality in fetal heart rate and rhythm complicating labor and delivery; O99.824 Streptococcus B carrier state complicating childbirth
CPT/HCPCS: 36415; 59025; 80053; 81001; 82570; 84156; 84550; 85014; 85018; 85025; 85027; 85049; 86592; 86850; 86900; 86901; 87086; 87088; 88307; 90715; A9270; J0290; J2405; J2590; J2795; J3010; J3475; J7120

== ENCOUNTER 2021-11-23 12:54 | Emergency (ER) | payer SELFPAY ==
--- NOTE | ~2021-11-23 | XR_ITS ---
EXAMINATION: XR chest 2V 11/23/2021 13:39 INDICATION: Cough and shortness of breath PROCEDURE: 2 view chest COMPARISON: No prior studies for comparison. FINDINGS: The lungs are clear. The cardiomediastinal silhouette is within normal limits. There are no pleural effusions. There is no pneumothorax suspected. IMPRESSION: 1: NO ACUTE CARDIOPULMONARY DISEASE. Reviewed, dictated and finalized at location A.
[2021-11-23 12:57] VITALS: BP 137/84; PULSE 96; RESP 16; TEMP 36.4; O2SAT 99
--- NOTE | 2021-11-23 13:39 | ED.URI ---
HPI - URI/Sore Throat General Chief Complaint: Upper Respiratory Infection Stated Complaint: Cold symptoms x 3 weeks Time Seen by Provider: 11/23/21 12:58 Source: patient and RN notes reviewed Mode of arrival: ambulatory Limitations: no limitations History of Present Illness HPI Narrative: This is a 31 year old female 35 weeks GA who presents for evaluation of cough. Patient states starting 3 weeks ago she develop sinus drainage, nonproductive cough and sore throat. Approximately 2 weeks ago she was evaluated at an urgent care and she was prescribed amoxicillin. She thinks she was improving until she slept under the ceiling fan. She reports sore throat that occurs at night. She reports postnasal drainage that is worse at night and causing her sore throat. She denies chest pain, fever, chills, shortness of breath, sinus pain or facial pain. She test weekly for covid and her last test was on Wednesday. She has been negative. S Her OBGYN is Dr. Botello. She denies any issues for with . She denies abdominal pain, vaginal bleeding. Related Data Home Medications Medication Instructions Recorded Confirmed vit no.95-ferrous 1 tablet PO DAILY 06/05/19 06/05/19 fumarate 28 mg-folic acid 800 mcg tablet () Allergies Allergy/AdvReac Type Severity Reaction Status Date / Time No Known Allergies Allergy Verified 06/05/19 11:00 Review of Systems Review of Systems: All systems reviewed & are unremarkable except as noted in HPI and below Constitutional: Constitutional: Denies chills, Denies fatigue and Denies fever(s) ENT: Denies nasal congestion and Denies sore throat Respiratory: Respiratory: Denies chest congestion and Reports cough PMFSH Family History Family History Grandparent Diabetes mellitus Hypertension Family history of cardiovascular disease Social History Social History Smoking status: Never smoker Second hand tobacco smoke exposure: No Alcohol intake: never Substance use: never Gender identity (if verbalized by the patient): Female Spiritual care concerns: No Exam Const: General: no acute distress and alert Nutritional Appearance: well nourished Orientation/consciousness: patient oriented x3 Limitations: no limitations HENMT: Head: normal to inspection Ears: external ears normal and TM's normal bilaterally Face/Nose/Sinus: Abnormal mucous membranes and turbinates present boggy, sinuses nontender and face symmetric Face and sinus: normal facial exam, sinuses nontender and face symmetric Mouth: Yes Normal oral and palatal mucosa present, Yes lip normal, Yes tongue normal, Yes oropharynx normal and Yes moist mucous membranes Throat: posterior oropharynx normal, tonsils normal and uvula midline Eyes: Conjunctivae: conjunctivae normal Pupils: Equal, round and reactive pupils present EOM: EOMs intact bilaterally Chest: Chest palpation & inspection: normal inspection of the chest Resp: Effort & Inspection: normal respiratory effort Auscultation: clear to auscultation bilaterally Cardio: Rate: regular rate Rhythm: regular rhythm GI: GI Palp: Yes Soft to palpation, No Tenderness to palpation present (GI) and No Guarding due to palpation present (GI) Auscultation: normal bowel sounds Other: gravid Skin: General skin exam: normal color Rashes: no rashes Wounds: no wounds Neuro: General: patient oriented x3, moves all extremities and CN's II-XI intact bilaterally Extrem: General: normal to inspection and no pedal edema Psych: Mental Status: mental status grossly normal Affect: normal affect Attitude: cooperative Course Reevaluation(s) Reevaluation #1: I discussed with patient that xray was normal. Her symptoms seem related to allergies more than infectious. Date: 11/23/21 Time: 14:06 Vital Signs Vital si
== END 2021-11-23 14:34 | disposition home or self-care (01) ==
PROVIDERS: Emergency Provider General Practice
DX: O99.513 Diseases of the respiratory system complicating pregnancy, third trimester (principal); J30.9 Allergic rhinitis, unspecified; Z3A.35 35 weeks gestation of pregnancy
CPT/HCPCS: 71046; 99283

== ENCOUNTER 2021-12-04 11:56 | Outpatient (CLI) | payer OTHER, SELFPAY ==
[2021-12-04 12:35] VITALS: BP 127/85; PULSE 89
[2021-12-04 12:41] LABS: Basophils Percent Auto 0.3 % (0.2-1.2); Eosinophils Percent Auto 0.6 % (0-4.4); Immature Granulocyte Absolute 0.04 K/mm3 (0.00-0.031); Immature Granulocyte Percent A 0.6 % (0-0.5); Lymphocytes Absolute Auto 1.59 K/mm3 (0.9-3.2); Lymphocytes Percent Auto 25.3 % (18.3-44.2); Mean Corpuscular Hemoglobin 24.9 pg (26-34); Mean Corpuscular Volume 80.1 fl (80-100); Mean Platelet Volume 10.1 fl (7.4-10.4); Monocytes Absolute Auto 0.5 K/mm3 (0.1-0.6); Monocytes Percent Auto 7.2 % (2.6-8.5); Neutrophils Absolute Auto 4.2 K/mm3 (1.3-6.7); Platelet Count Result 352 k/mm3 (150-375); Red Blood Count 3.62 M/mm3 (4.2-5.4); Red Cell Distribution Width 15.6 % (11.5-14.5); White Blood Count 6.3 K/mm3 (4.5-10.0)
[2021-12-04 12:46] VITALS: BP 135/82; PULSE 87
[2021-12-04 12:46] LABS: Add Urine Microscopic? YES; Appearance Urine Cloudy (Clear); Bacteria Urine Trace /hpf; Bilirubin Urine Negative (Negative); Blood Urine Negative (Negative); Color Urine Yellow (Yellow); Glucose Urine UA Negative (Negative); Ketones Urine Negative (Negative); Leukocyte Esterase Ur Trace LEU/UL (NEGATIVE); Mucus Urine Rare /lpf; Nitrate Urine Negative (Negative); Protein Urine 1+ mg/dL (Negative); Specific Grav Ur 1.017 (1.001-1.035); Squamous Epithelial Cell Urine Many /hpf (Few); Urobilinogen Urine Negative mg/dL (<2.0); WBC Urine 0-3 /hpf (0-3)
[2021-12-04 12:47] LABS: Creatinine Urine 122.8 mg/dL; Total Protein Urine Random 11 mg/dL; Ur Ttl Prot Creatinine Ratio 0.09 mg/mg (0-0.20)
[2021-12-04 12:51] LABS: Alanine Aminotransferase 18 U/L (6-35); Albumin Level 3.7 g/dL (3.5-5.1); Alkaline Phosphatase 174 U/L (38-126); Anion Gap 9 mmol/L (8-16); Aspartate Amino Transferase 27 U/L (14-36); Bilirubin,Total 0.2 mg/dL (0.2-1.3); Blood Urea Nitrogen 6 mg/dL (7-17); Calcium 9.1 mg/dL (8.4-10.2); Carbon Dioxide 20 mmol/L (22-30); Chloride 105 mmol/L (98-107); Estimated Glomerular Filt Rate > 60; Glucose 110 mg/dL (65-110); Potassium 3.7 mmol/L (3.4-5.0); Sodium 134 mmol/L (137-145); Uric Acid 5.2 mg/dL (2.5-7.5)
[2021-12-04 13:01] VITALS: BP 131/79; PULSE 75
== END 2021-12-04 13:15 | disposition home or self-care (01) ==
LOC: ANHOBOP 12:02 → ANHOBPP 12:02
PROVIDERS: Visit Provider Obstetrics & Gynecology
DX: O13.9 Gestational [pregnancy-induced] hypertension without significant proteinuria, unspecified trimester (principal); Z3A.00 Weeks of gestation of pregnancy not specified
CPT/HCPCS: 36415; 59025; 80053; 81001; 82570; 84156; 84550; 85025; 87086; 99199

== ENCOUNTER 2021-12-15 12:14 | Inpatient (IN) | payer OTHER, SELFPAY ==
[2021-12-15] VITALS (11 sets, daily range): BP systolic 129–160; BP diastolic 79–107; PULSE 65–96; RESP 18; TEMP 36.4–36.8; O2SAT 100
[2021-12-15 14:12] LABS: Basophils Percent Auto 0.4 % (0.2-1.2); Eosinophils Percent Auto 0.2 % (0-4.4); Hematocrit 30.2 % (37.0-47.0); Hemoglobin 9.6 g/dL (12.0-15.0); Immature Granulocyte Absolute 0.06 K/mm3 (0.00-0.031); Immature Granulocyte Percent A 0.7 % (0-0.5); Lymphocytes Absolute Auto 2.76 K/mm3 (0.9-3.2); Lymphocytes Percent Auto 32.9 % (18.3-44.2); Mean Corpuscular HGB Conc 31.8 g/dl (32-36); Mean Corpuscular Hemoglobin 25.3 pg (26-34); Mean Corpuscular Volume 79.7 fl (80-100); Mean Platelet Volume 10.2 fl (7.4-10.4); Monocytes Absolute Auto 0.8 K/mm3 (0.1-0.6); Monocytes Percent Auto 9.7 % (2.6-8.5); Neutrophils Absolute Auto 4.7 K/mm3 (1.3-6.7); Neutrophils Percent Auto 56.1 % (45.5-73.1); Platelet Count Result 340 k/mm3 (150-375); Red Blood Count 3.79 M/mm3 (4.2-5.4); Red Cell Distribution Width 16.5 % (11.5-14.5); White Blood Count 8.4 K/mm3 (4.5-10.0)
--- NOTE | 2021-12-15 14:39 | PM.OBPRVD ---
OB - Delivery Note Procedure Procedure: Delivery monitor: External FHT and External Uterine Route of delivery: Episiotomy description: None Laceration Description: None Quantitative Blood Loss (ml): 100 [place] Baby Date of : 12/15/21 Time of : 14:24 Weeks of gestation at delivery: 40 Infant gender: Male Weight (pounds): 7 Weight (ounces): 4 score one minute: 9 score five minutes: 9
--- NOTE | 2021-12-15 15:33 | LDADM ---
This patient, Zack Rivera, was admitted to Labor/Delivery/Recovery 106 on 12/15/21 at 12:14. Plans for labor, pain management and were discussed with patient. Patient/family oriented to hospital policies and general routines including ID bracelet, bed and alarms, visiting hours, pain management, procedures, bathroom and other care routines, personal items, smoking policy, room service/diet and guest tray routines, infant security routines, and visiting hours. Patient/Family are encouraged to report perceived risks to care and to ask questions if they do not understand what they are told or what they should do. See OBIX for further documentation.
[2021-12-15] MEDS: DOCUSATE SODIUM 100 MG CAPSULE PO (17:51)
[2021-12-15] MEDS: POLYSACCHARIDE IRON COMPLEX 150 MG CAPSULE PO (17:51)
[2021-12-16 00:34] VITALS: BP 155/105; PULSE 72; RESP 18; TEMP 36.7; O2SAT 100
[2021-12-16] MEDS: IBUPROFEN 600 MG TABLET PO ×2 (00:41→15:09)
[2021-12-16 05:12] VITALS: BP 143/104; PULSE 71; RESP 18; TEMP 37; O2SAT 100
[2021-12-16 06:31] LABS: Hematocrit 29.4 % (37.0-47.0); Hemoglobin 9.2 g/dL (12.0-15.0)
[2021-12-16 07:45] VITALS: BP 142/95; PULSE 74; RESP 18; TEMP 36.9; O2SAT 100
[2021-12-16] MEDS: DOCUSATE SODIUM 100 MG CAPSULE PO (07:58)
[2021-12-16] MEDS: POLYSACCHARIDE IRON COMPLEX 150 MG CAPSULE PO (07:58)
[2021-12-16] MEDS: MULTIVIT/MIN/PREN/FOL AC/IRON TABLET 1 TAB PO (07:58)
[2021-12-16] MEDS: LANOLIN (LANSINOH) 7.5 GM CREAM 1 APPLIC TOPICAL (08:11)
--- NOTE | 2021-12-16 08:37 | PM.OBPNVD ---
OB - PN: Subj Subjective Date/time seen: 12/16/21 08:37 Patient comments: no complaints, pain well controlled, incisional pain, tolerating diet and flatus present OB - PN: Obj Data Labs CBC & Chem 7: 12/16/21 05:49 Labs: Laboratory Results - last 24 hr 12/15/21 12/15/21 12/16/21 14:07 14:07 05:49 WBC 8.4 RBC 3.79 L Hgb 9.6 L 9.2 L Hct 30.2 L 29.4 L MCV 79.7 L MCH 25.3 L MCHC 31.8 L RDW 16.5 H Plt Count 340 MPV 10.2 Immature Gran % (Auto) 0.7 H Neut % (Auto) 56.1 Lymph % (Auto) 32.9 [place] % (Auto) 9.7 H Eos % (Auto) 0.2 Baso % (Auto) 0.4 Lymph # (Auto) 2.76 [place] # (Auto) 0.8 H Eos # (Auto) 0.0 Baso # (Auto) 0.0 Abs Immat Gran (auto) 0.06 H Absolute Neuts (auto) 4.7 Absolute Nucleated RBC 0.0 Nucleated RBC % 0.0 Blood Type B Positive Antibody Screen Negative OB - PN A/P Plan day: 1 Plan: routine care Comments: No problems, routine care Time Spent With Patient Time: Total time spent is greater than 50% in coordination of care (as documented) at patient's floor/unit and/or counseling patient: Exam Const: General: comfortable, no acute distress and alert Resp: Effort & Inspection: normal respiratory effort Auscultation: no crackles, no rales and no rhonchi Cardio: Rate: regular rate Heart sounds: no click, no murmurs and no rubs GI: Inspection: non-distended GI Palp: No Tenderness to palpation present (GI) Auscultation: normal bowel sounds Other: Incision - CDI Extrem: General: normal to inspection, no pedal edema and no calf tenderness
[2021-12-16 11:52] VITALS: BP 133/91; PULSE 72; RESP 16; TEMP 36.6; O2SAT 100
--- NOTE | 2021-12-16 13:30 | PC.NURSE ---
Patient viewed the discharge video Mother & Baby Care, The First Two Weeks . Patient was given the opportunity and encouraged to ask questions. Patient verbalized understanding of information shared and has been given the mother/baby guide for home reference.
[2021-12-16] MEDS: TETANUS,DIPHTHERIA,AC PERTUSSIS ADULT (0.5 ML) BOOSTRIX IM (15:09)
[2021-12-16 16:28] LABS: Rapid Plasma Reagin Non-Reactive (NonReactive)
--- NOTE | 2022-01-13 11:00 | P.DS_ITS ---
DS: Admitting Diagnosis Discharge Date 12/16/21 Admitting Diagnosis term , labor OB - DS: Summary OB Procedures : None OB Procedures Intrapartum: Spontaneous Vag Delivery OB Procedures: : None Time Spent with Patient Time attestation: Total time spent providing and/or coordinating discharge services: Discharge Plan Discharge Discharging Clinician: Joseph Botello Patient Disposition: Home, Self-Care Activity: pelvic rest Diet: regular Discharge Instructions: Education: Mom and Baby Guide Given to: Mother Follow-Up: Call your delivering provider's office for an appointment to be seen in: 6 Weeks Mom and baby should come to the [facility] for the follow-up appointment. Appointment Date/Time: December 17, 2021 at 11:00 am What to expect at your follow-up visit: Blood Pressure Check Physical Assessment Call [phone] if you are unable to keep your appointment time. BREAST CARE: * Wear a snug supportive bra. * For engorgement discomfort: Breast Feeding: * Apply warm moist washcloths * Express milk as needed to relieve engorgement * Wear loose clothing Bottle Feeding: * May apply ice packs * For sore nipples: * Identify correct latch-on * Apply warm moist washcloths before and after nursing * Air dry nipples after nursing * May apply Lansinoh cream to nipples EPISIOTOMY/PERINEAL CARE: * Until bleeding stops, use your robert bottle after urinating * Change your pad frequently throughout the day * You may take sitz baths several times a day (fill your bathtub with warm water and soak for 20 minutes.) Do NOT bathe in the water * No tub baths until seen by your physician - You may shower ACTIVITY: * Rest as much as possible. * Do not exercise or lift anything heavier than your baby (such as laundry or other children.) * Avoid stairs or driving as much as possible. * Do not put anything into the vagina. No douching, tampons, or sexual activity until seen by physician. NOTIFY PHYSICIAN IF YOU HAVE ANY QUESTIONS OR IF ANY OF THE FOLLOWING SYMPTOMS OCCUR: * If your episiotomy or incision becomes red, swollen, or more painful than what you have experienced in the hospital. * If your vaginal bleeding becomes foul smelling. * If your vaginal bleeding becomes more heavy than a period or if your bleeding changes from pink to bright red. However, you may pass an occasional walnut- sized clot once or twice for the first week . * If you experience a sharp, shooting pain in you calves. * If you discover a hard, reddened area on your breast or if you experience flu- like symptoms. DIET: * Eat regular, well-balanced meals. * Drink plenty of fluids daily. If , drink to thirst. Patient Instructions: Antibiotic Form, Caring for Your Baby (DC) Stand Alone Forms: General Discharge Information Follow-up/Referrals: Joseph Botello MD [Physician] - Discharge Medications: Continued PNV cmb#95-ferrous fumarate-FA [] 28 mg iron- 800 mcg Tablet 1 tablet PO DAILY No Action labetalol 200 mg Tablet 200 mg PO Q12H Qty: 10 0RF Date of admission: 12/15/21 12:14 Primary Care Provider: UNKNOWN,DOCTOR Admitting Provider: Joseph Botello Attending physician on admission: Joseph Botello Condition: Stable
== END 2021-12-16 16:50 | disposition home or self-care (01) | DRG 560 ==
LOC: ANHLDR 13:58 → ANHOB2 17:21
PROVIDERS: Admitting Provider Obstetrics & Gynecology; Visit Provider Obstetrics & Gynecology
DX: O62.3 Precipitate labor (principal); Z37.0 Single live birth; Z3A.38 38 weeks gestation of pregnancy
CPT/HCPCS: 36415; 85014; 85018; 85025; 86592; 86850; 86900; 86901; 90715; A9270

== ENCOUNTER 2021-12-25 20:07 | Outpatient (CLI) | payer OTHER, SELFPAY ==
[2021-12-25 20:33] VITALS: BP 161/98; PULSE 69
[2021-12-25 20:45] VITALS: BP 151/98; PULSE 66
--- NOTE | 2021-12-25 20:57 | PC.NURSE ---
2004- pt came in with c/o elevated BP 180's/120's today. pt delivered 12/15/21. No diagnosis with Pre-E during but she has a history of pre-e with previous . no SMITH, no RUQ pain, no swelling, no vision changes. per Dr. Botello orders received to do [facility] labs and will call with results.
[2021-12-25 21:00] VITALS: BP 149/97; PULSE 78
[2021-12-25 21:10] LABS: Basophils Percent Auto 0.9 % (0.2-1.2); Eosinophils Absolute Auto 0.1 K/mm3 (0-0.3); Eosinophils Percent Auto 2.1 % (0-4.4); Hemoglobin 10.5 g/dL (12.0-15.0); Immature Granulocyte Absolute 0.01 K/mm3 (0.00-0.031); Immature Granulocyte Percent A 0.2 % (0-0.5); Lymphocytes Absolute Auto 2.03 K/mm3 (0.9-3.2); Lymphocytes Percent Auto 47.5 % (18.3-44.2); Mean Corpuscular HGB Conc 30.9 g/dl (32-36); Mean Corpuscular Hemoglobin 25.1 pg (26-34); Mean Corpuscular Volume 81.1 fl (80-100); Mean Platelet Volume 9.7 fl (7.4-10.4); Monocytes Absolute Auto 0.3 K/mm3 (0.1-0.6); Neutrophils Absolute Auto 1.8 K/mm3 (1.3-6.7); Neutrophils Percent Auto 42.3 % (45.5-73.1); Platelet Count Result 418 k/mm3 (150-375); Red Blood Count 4.19 M/mm3 (4.2-5.4); Red Cell Distribution Width 17.2 % (11.5-14.5); White Blood Count 4.3 K/mm3 (4.5-10.0)
[2021-12-25 21:15] VITALS: BP 138/88; PULSE 72
[2021-12-25 21:16] LABS: Appearance Urine Slightly Cloudy (Clear); Bilirubin Urine Negative (Negative); Blood Urine 1+ (Negative); Color Urine Yellow (Yellow); Glucose Urine UA Negative (Negative); Ketones Urine Negative (Negative); Leukocyte Esterase Ur Trace LEU/UL (NEGATIVE); Nitrate Urine Negative (Negative); Protein Urine 1+ mg/dL (Negative); Specific Grav Ur 1.025 (1.001-1.035); Urobilinogen Urine 0.2 mg/dL (<2.0); pH Urine 6.5 (5.0-9.0)
[2021-12-25 21:20] LABS: Add Urine Microscopic? YES; Bacteria Urine Trace /hpf; Mucus Urine Rare /lpf; Squamous Epithelial Cell Urine Rare /hpf (Few); WBC Urine 0-3 /hpf (0-3)
[2021-12-25 21:21] LABS: Alanine Aminotransferase 31 U/L (6-35); Albumin Level 4.1 g/dL (3.5-5.1); Alkaline Phosphatase 121 U/L (38-126); Anion Gap 15 mmol/L (8-16); Aspartate Amino Transferase 33 U/L (14-36); Bilirubin,Total 0.2 mg/dL (0.2-1.3); Blood Urea Nitrogen 11 mg/dL (7-17); Calcium 8.7 mg/dL (8.4-10.2); Carbon Dioxide 21 mmol/L (22-30); Chloride 104 mmol/L (98-107); Estimated Glomerular Filt Rate > 60; Glucose 100 mg/dL (65-110); Potassium 3.6 mmol/L (3.4-5.0); Sodium 140 mmol/L (137-145); Uric Acid 6.6 mg/dL (2.5-7.5)
[2021-12-25 21:22] LABS: Creatinine Urine 131.1 mg/dL; Total Protein Urine Random 15 mg/dL; Ur Ttl Prot Creatinine Ratio 0.11 mg/mg (0-0.20)
[2021-12-25 21:30] VITALS: BP 138/91; PULSE 75
[2021-12-25 21:45] VITALS: PULSE 75
[2021-12-25] MEDS: LABETALOL HCL 100 MG TABLET 200 MG PO (21:45)
--- NOTE | 2021-12-25 21:55 | PC.NURSE ---
2131- called - reviewed labs and BP's. pt c/o no Pre-E sxs except for elevated BP at home. orders received to give Labetalol 200mg po now and send RX to pharm for Labetalol 200mg po BID. pt to call office in am to set up f/u appt. to check BP. Pre-E precautions given to pt and pt instructed on when to return to L&D. order received to D/c pt home.
== END 2021-12-25 22:00 | disposition home or self-care (01) ==
LOC: ANHOBOP 20:13 → ANHLDR 12-31 06:18
PROVIDERS: Visit Provider Obstetrics & Gynecology
DX: O13.5 Gestational [pregnancy-induced] hypertension without significant proteinuria, complicating the puerperium (principal)
CPT/HCPCS: 36415; 80053; 81001; 82570; 84156; 84550; 85025; 87086; 99199; A9270

== ENCOUNTER 2022-12-14 11:08 | Emergency (ER) | payer BC, OTHER, SELFPAY ==
--- NOTE | ~2022-12-14 | US_ITS ---
EXAMINATION: US OB <=14 wk fetus w TV DATE: 12/14/2022 15:11 INDICATION: Evaluate for ectopic . TECHNIQUE: Real-time transvaginal obstetric ultrasound. FINDINGS: No prior studies for comparison. The uterus measures 8.6 x 5.6 x 6.8 cm. No intrauterine gestational sac or pole identified. Ova lety within normal limits. Right ovary measures 3 x 1.7 x 1.9 cm. Left ovary measures 3.2 x 1.3 x 1.2 cm. There is trace fluid in the pelvic cul-de-sac. IMPRESSION: 1. No evidence for intrauterine . Differential diagnosis includes very early intrauterine pr egnancy, failed and ectopic . Recommend serial quantitative beta-hCG levels and ul trasound as clinically indicated. Reviewed, dictated and finalized at location A. IMPRESSION: 1. No evidence for intrauterine . Differential diagnosis includes very early intrauterine , failed and ectopic . Recommen d serial quantitative beta-hCG levels and ultrasound as clinically indicated.
[2022-12-14 11:21] VITALS: BP 126/79; PULSE 75; RESP 16; TEMP 36.4; O2SAT 100
--- NOTE | 2022-12-14 13:26 | ED.FEMALEGU ---
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 Patient last menstrual period November 03, 2022. Patient had a positive home test 9 days ago. Patient is 3, para 2, abortions 0, intermittent nausea, patient drove herself to the emergency room. She does not smoke or drink or uses drugs, does not take any medicine at home right now. Related Data Home Medications Medication Instructions Recorded Confirmed vit no.95-ferrous 1 tablet PO DAILY 06/05/19 12/15/21 fumarate 28 mg-folic acid 800 mcg tablet () Allergies Allergy/AdvReac Type Severity Reaction Status Date / Time No Known Allergies Allergy Verified 12/14/22 11:12 Review of Systems Review of Systems: All systems reviewed & are unremarkable except as noted in HPI and below PMFSH Family History Family History Grandparent Diabetes mellitus Hypertension Family history of cardiovascular disease Social History Social History Smoking status: Never smoker Second hand tobacco smoke exposure: No Alcohol intake: never Substance use: never Lack of Transportation: No Lack of Food: Never True Current Housing: I Have Housing Concerned About Future Housing: No Difficulty Paying Gas/Electric Bills: No Difficulty Paying for Meds: No Currently Unemployed: No Education: High School Diploma/GED Difficulty w/ Childcare or Family Care: No Gender identity (if verbalized by the patient): Female Spiritual care concerns: No Exam Narrative: General appearance: Well-developed, well-nourished Skin: Normal color Head: Normocephalic, nontraumatic Eyes: Clear conjunctiva ENT: Oropharynx normal, ears normal, nose normal Neck: Supple, nontender Chest and respiratory: Airway patent, no respiratory distress, no accessory muscle use Heart: Regular rate/rhythm Abdomen: Soft, nontender, no organomegaly, quiet bowel sounds Vaginal exam showed slight vaginal bleed, bright red blood, closed os, no cervical tenderness, no blood clots. Vascular: Normal peripheral pulses, normal capillary refill. Musculoskeletal: Normal range of motion, nontender back Neurologic: Alert and oriented ?3, INTELLIGENCE OFFICER BASIC is normal as tested, no gross motor deficit Course Consultations Consultation #1: Dr. Botello Outpatient follow-up in 2 days Date: 12/14/22 Time: 17:21 Vital Signs Vital signs: Vital Signs Temperature 36.4 C 12/14/22 11:21 Pulse Rate 75 12/14/22 11:21 Respiratory Rate 16 12/14/22 11:21 Blood Pressure 126/79 12/14/22 11:21 Pulse Oximetry 100 12/14/22 11:21 Temperature 36.8 C 12/14/22 14:00 Pulse Rate 73 12/14/22 17:26 Respiratory Rate 18 12/14/22 17:26 Blood Pressure 129/88 12/14/22 17:26 Pulse Oximetry 100 12/14/22 17:26 MDM - Female Genitourinary MDM Narrative Medical decision making narrative: Patient presents with vaginal bleeding, possible 2 weeks , blood work-up today showed no significant abnormalities, pelvic ultrasound showed no evidence of intrauterine , ectopic versus early , recommend repeat beta-hCG. Dr. Botello was notified, requested outpatient follow-up in 2 days Differential Diagnosis Differential diagnosis: Likely other (, miscarriage,) Medical Manjinder
[2022-12-14 14:00] VITALS: BP 124/77; PULSE 70; RESP 18; TEMP 36.8; O2SAT 99
[2022-12-14 14:10] LABS: Basophils Percent Auto 0.7 % (0.2-1.2); Eosinophils Absolute Auto 0.1 K/mm3 (0-0.3); Eosinophils Percent Auto 1.5 % (0-4.4); Hematocrit 37.3 % (37.0-47.0); Hemoglobin 11.5 g/dL (12.0-15.0); Immature Granulocyte Absolute 0.01 K/mm3 (0.00-0.031); Immature Granulocyte Percent A 0.2 % (0-0.5); Lymphocytes Absolute Auto 2.11 K/mm3 (0.9-3.2); Lymphocytes Percent Auto 51.5 % (18.3-44.2); Mean Corpuscular HGB Conc 30.8 g/dl (32-36); Mean Corpuscular Hemoglobin 25.4 pg (26-34); Mean Corpuscular Volume 82.5 fl (80-100); Mean Platelet Volume 9.9 fl (7.4-10.4); Monocytes Absolute Auto 0.3 K/mm3 (0.1-0.6); Monocytes Percent Auto 7.8 % (2.6-8.5); Neutrophils Absolute Auto 1.6 K/mm3 (1.3-6.7); Neutrophils Percent Auto 38.3 % (45.5-73.1); Platelet Count Result 357 k/mm3 (150-375); Red Blood Count 4.52 M/mm3 (4.2-5.4); Red Cell Distribution Width 14.8 % (11.5-14.5); White Blood Count 4.1 K/mm3 (4.5-10.0)
[2022-12-14] MEDS: SODIUM CHLORIDE 0.9% IV 1,000 ML 999 ML IV CONT (14:13)
[2022-12-14 16:19] LABS: Appearance Urine Clear (Clear); Bacteria Urine None Seen /hpf; Bilirubin Urine Negative (Negative); Blood Urine 3+ (Negative); Color Urine Yellow (Yellow); Glucose Urine UA Negative (Negative); Ketones Urine Negative (Negative); Leukocyte Esterase Ur Trace LEU/UL (Negative); Need Manual Microscopic Reviewed; Nitrate Urine Negative (Negative); Non Pathogenic Casts 0-2; Protein Urine Negative (Negative); Specific Grav Ur 1.017 (1.001-1.035); Squamous Epithelial Cell Urine Occasional /hpf (Few); Urobilinogen Urine 0.2 mg/dL (<2.0); WBC Urine 0-5 /hpf
[2022-12-14 16:21] LABS: Add Urine Microscopic? YES
[2022-12-14 17:26] VITALS: BP 129/88; PULSE 73; RESP 18; O2SAT 100
== END 2022-12-14 17:32 | disposition home or self-care (01) ==
PROVIDERS: Emergency Provider Emergency Medicine
DX: O20.9 Hemorrhage in early pregnancy, unspecified (principal); Z3A.00 Weeks of gestation of pregnancy not specified
CPT/HCPCS: 36415; 76801; 76817; 81001; 84702; 85025; 85461; 86850; 86900; 86901; 96360; 99284; J7030